=== PATIENT | male | born 1980 | race Caucasian/White ===

== ENCOUNTER 2019-08-11 00:38 | Day surgery (SDC) | payer OTHER, SELFPAY ==
[2019-07-28 14:04] VITALS: BMI 31.8
--- NOTE | 2019-08-10 16:59 | WPDANESEPP ---
Anes - Eval Pre Procedure Procedure: Operation Date: 08/11/19 07:30 Proposed Procedures p Bilateral Open Carpal Tunnel Release - Charlie Hurd MD Date/Time: 08/10/19 16:59 Pre Op Diagnosis: bilateral carpal tunnel syndrome Patient Data Age: 38 Gender: M Height: 6 ft Weight: 106.59 kg Allergies Allergy/AdvReac Type Severity Reaction Status Date / Time No Known Allergies Allergy Verified 07/28/19 14:04 Home Medications Medication Instructions Recorded Confirmed Type ibuprofen 200 mg PO BID 07/28/19 07/28/19 History Patient hx anesthesia problems: none Family hx anesthesia problems: none PMFSH Past Medical History Medical History (Updated 08/10/19 @ 17:01 by Sam Mondragon CRNA) Back pain Obesity Surgical History Surgical History (Updated 08/10/19 @ 17:01 by Sam Mondragon CRNA) H/O vasectomy Exam Day of Procedure 08/10/19 16:59
--- NOTE | 2019-08-10 21:50 | HP_ITS ---
DATE OF SERVICE: 08/11/2019 PREOPERATIVE DIAGNOSIS: Bilateral carpal tunnel syndrome. HISTORY: This gentleman is 38. He is a patient of Hector Hart. 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 His condition has been going on for 3 years. He has numbness that is frequent in the radial 3-1/2 digits. This wakes him at night. His symptoms were lessened as he was off work for a while. A nerve conduction test was done 06/14/19, by Dr. Huang indicating bilateral carpal tunnel syndrome. This is consistent with his symptoms and his exam. ALLERGIES: HE HAS NO KNOWN ALLERGIES TO MEDICATION. MEDICATIONS: He takes ibuprofen. PRIOR SURGERIES: Include knee surgery in 1997, tonsillectomy in 1991 and pilonidal cyst surgery in 2001. He says he sees no other specialists. He is a nonsmoker. REVIEW OF SYSTEMS: Otherwise negative. FAMILY HISTORY: Noncontributory. 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 PHYSICAL EXAMINATION: GENERAL: He is alert, cooperative and informative. He is 6 feet tall, weighs 235 pounds, in no distress. HEENT: Unremarkable. CHEST: Clear to auscultation. HEART: Regular rate and rhythm by palpation. ABDOMEN: soft, nontender. EXTREMITY exam reveals a few findings possibly due to the long duration of his symptoms, but include provocative pain in Tinel's at the right elbow and Tinel's at the left wrist and then Tinel's at the left elbow. He has some difficulty opposing the 1st and 5th digits. ASSESSMENT: Bilateral carpal tunnel syndrome. PLAN: Bilateral open carpal tunnel release under local anesthetic at his request. D I MT: Valeria
[2019-08-11] VITALS (7 sets, daily range): BP systolic 128–169; BP diastolic 50–79; PULSE 67–81; RESP 16; TEMP 36.6; O2SAT 97–99; BMI 31.2
--- NOTE | 2019-08-11 07:21 | WPDHPUPDATE1 ---
History and Physical Update Update Date/Time: 08/11/19 07:21 History and Physical has been reviewed, including an updated exam of the patient. There are NO changes in the patient's condition. Risks, benefits, and alternatives have been discussed and questions answered. Patient agrees to proceed with procedure.
[2019-08-11] MEDS: LIDO 1%/EPINEPHRINE 1:100,000 20 ML VIAL INFILTRATE (07:51)
--- NOTE | 2019-08-11 08:13 | PM.OP ---
Procedure Note - Brief Procedure Note - Brief Date of procedure: 08/11/19 Pre-op diagnosis: bilateral carpal tunnel syndrome Post-op diagnosis: same (Bilateral carpal tunnel syndrome) Procedure performed: B OCTR Anesthesia: local Surgeon: Charlie Hurd MD Estimated blood loss (mL): 6 Tourniquet time (min): 0 Drains: No Packing: No Pathology: none sent Complications: No immediate complications Condition: stable Disposition: same day
--- NOTE | 2019-08-11 08:20 | PM.PROC ---
Procedure Note - Detailed Date of procedure: 08/11/19 Pre-op diagnosis: bilateral carpal tunnel syndrome Bilateral carpal tunnel syndrome Post-op diagnosis: same Procedure performed: Bilateral open carpal tunnel release Description of procedure: The 2 sites planned for surgery were marked in the holding area. He was rolled to the operative room placed supine on the operating table. A time-out was held and confirmed. The 2 extremities were marked for the exact incisions and each was infiltrated with 1% lidocaine with epinephrine. The extremities were prepped and draped in the usual fashion. Neither side required the use of a tourniquet. Surgery was begun on the left side with an incision as marked. Blunt dissection through the subcutaneous tissue revealed the palmar fascia and the carpal ligament. These were incised with a 15. Blade opening the canal. The release was done distally and proximally to complete the open the canal and no unusual anatomy was noted. The skin was closed with interrupted 4-0 nylon suture. Attention was turned to the opposite side. The incision was made as marked. Dissection was carried bluntly through the subcutaneous tissue to the palmar fascia and carpal ligament. These were incised with a 15. Blade. Under 3 point retraction, the ligament was divided distally and proximally to completely release it.. Again no unusual anatomy was noted. The usual bandages with Xeroform gauze and Anup wrap were applied. The patient is discharged with a prescription for hydrocodone . Surgeon: Charlie Hurd MD
== END 2019-08-11 08:45 | disposition home or self-care (01) ==
PROVIDERS: PCP Family Medicine; Visit Provider Plastic Surgery
PROC: (CPT 64721; principal; 2019-08-11 07:30)
DX: G56.03 Carpal tunnel syndrome, bilateral upper limbs (principal); E66.9 Obesity, unspecified; Z68.31 Body mass index [BMI] 31.0-31.9, adult
CPT/HCPCS: 64721; A9270

== ENCOUNTER 2022-08-18 09:47 | Emergency (ER) | payer OTHER, SELFPAY ==
[2022-08-18 10:05] VITALS: BP 145/78; PULSE 69; RESP 16; TEMP 36.3; O2SAT 99
[2022-08-18 10:16] LABS: Basophils Absolute Auto 0.1 K/mm3 (0.0-0.1); Eosinophils Absolute Auto 0.1 K/mm3 (0-0.3); Eosinophils Percent Auto 1.2 % (0-4.4); Hematocrit 42.3 % (42.0-52.0); Hemoglobin 14.1 g/dL (14.0-18.0); Immature Granulocyte Absolute 0.01 K/mm3 (0.00-0.031); Immature Granulocyte Percent A 0.2 % (0-0.5); Lymphocytes Absolute Auto 1.82 K/mm3 (0.9-3.2); Lymphocytes Percent Auto 35.4 % (18.3-44.2); Mean Corpuscular HGB Conc 33.3 g/dl (32-36); Mean Corpuscular Hemoglobin 30.3 pg (26-34); Mean Platelet Volume 9.6 fl (7.4-10.4); Monocytes Absolute Auto 0.5 K/mm3 (0.1-0.6); Monocytes Percent Auto 10.3 % (2.6-8.5); Neutrophils Absolute Auto 2.7 K/mm3 (1.3-6.7); Neutrophils Percent Auto 51.9 % (45.5-73.1); Platelet Count Result 235 k/mm3 (150-375); Red Blood Count 4.65 M/mm3 (4.6-6.20); Red Cell Distribution Width 12.5 % (11.5-14.5); White Blood Count 5.1 K/mm3 (4.5-10.0)
[2022-08-18 10:27] VITALS: BP 133/76; O2SAT 99
[2022-08-18 10:27] LABS: Prothrombin Time 12.5 Seconds (11.1-14.7)
[2022-08-18 10:28] LABS: Partial Thromboplastin Time 27.7 SECONDS (22.3-36.8)
[2022-08-18 10:31] VITALS: BP 124/83; O2SAT 99
[2022-08-18 10:39] LABS: Alanine Aminotransferase 41 U/L (6-50); Albumin Level 4.2 g/dL (3.5-5.1); Alkaline Phosphatase 74 U/L (38-126); Anion Gap 9 mmol/L (8-16); Aspartate Amino Transferase 35 U/L (17-59); Bilirubin,Total 0.7 mg/dL (0.2-1.3); Blood Urea Nitrogen 16 mg/dL (9-20); Calcium 8.8 mg/dL (8.4-10.2); Carbon Dioxide 25 mmol/L (22-30); Chloride 105 mmol/L (98-107); Estimated CRCL calculation 126 ml/min; Estimated Glomerular Filt Rate > 60; Glucose 102 mg/dL (65-110); Sodium 139 mmol/L (137-145)
[2022-08-18 10:45] VITALS: O2SAT 100
[2022-08-18 10:46] VITALS: BP 139/83; O2SAT 100
--- NOTE | 2022-08-18 11:04 | ED.GIBLEED ---
HPI - GI Bleed General Chief complaint: GI Bleed Stated complaint: BLOOD IN STOOL X1WK Time Seen by Provider: 08/18/22 10:24 History of Present Illness HPI Narrative: 41-year-old male here for evaluation of blood in his stool over the past week. Patient has a history of hemorrhoids and states this happened in the past. He states this week the blood is increased from usual flare-ups and is now mixed in the stool. The blood is bright red. he denies any tarry stools, abdominal pain, rectal pain/itching, nausea, vomiting, blood in his vomit. He has never seen a GI doctor. Reports occasional alcohol use but no significant NSAID use. Related Data Home Medications Medication Instructions Recorded Confirmed ibuprofen 200 mg tablet 200 mg PO BID 07/28/19 07/28/19 Allergies Allergy/AdvReac Type Severity Reaction Status Date / Time No Known Allergies Allergy Verified 07/28/19 14:04 Review of Systems Review of Systems: Gen.: Denies fevers or chills Eyes: Denies eye pain or visual change ENT: Denies congestion Respiratory: Denies shortness of breath or cough CV: Denies chest pain or palpitations GI: Denies abdominal pain nausea, emesis or diarrhea reports blood in stool Musculoskeletal: Denies back pain or muscle pain Neuro: Denies numbness, tingling, weakness or focal weakness Skin: Denies rash Except as documented, all other systems reviewed and negative PMFSH Past Medical History Medical History Back pain Obesity Surgical History Surgical History H/O vasectomy Exam Narrative: APPEARANCE: Well appearing, no pain in distress, well-nourished. Head: Normocephalic and atraumatic. EYES: PERRLA/EOMI, conjunctivae clear NOSE: No nasal drainage EARS: External ear normal in appearance THROAT: Oropharynx is clear. Mucous membranes are moist. NECK: Supple. No adenopathy, no masses. RESPIRATORY: Airway patent, respirations nonlabored. Clear to auscultation bilaterally, no rales, rhonchi, wheezing. CARDIOVASCULAR: Regular rate and rhythm without murmurs, rubs, or gallops. ABDOMINAL: Normoactive bowel sounds. Soft, nontender, nondistended. No rebound tenderness or guarding. : No blood noted on rectal exam. MUSCULOSKELETAL: Extremities are warm and well-perfused. Moves all extremities well. No edema. NEURO: Normal speech. No focal neurologic deficits. SKIN: Skin is warm and dry. No rashes. PSYCHIATRIC: Normal affect/mood. Course Vital Signs Vital signs: Vital Signs Temperature 97.4 F L 08/18/22 10:05 Pulse Rate 69 08/18/22 10:05 Respiratory Rate 16 08/18/22 10:05 Blood Pressure 145/78 H 08/18/22 10:05 Pulse Oximetry 99 08/18/22 10:05 Oxygen Delivery Room Air 08/18/22 10:05 Temperature 97.4 F L 08/18/22 10:05 Pulse Rate 69 08/18/22 10:05 Respiratory Rate 16 08/18/22 10:05 Blood Pressure 139/83 08/18/22 10:46 Pulse Oximetry 100 08/18/22 10:46 Oxygen Delivery Room Air 08/18/22 10:05 Procedures Stool Hemoccult Stool hemoccult #1: Stool Hemoccult Date: 08/18/22 Stool Hemoccult Time: 11:08 Procedural Steps Taken: stool placed in appropriate test area, developer placed on stool and control areas and controls appropriately positive and negative Hemoccult result: negative MDM - GI Bleed MDM Narrative Medical decision making narrative: 41-year-old male here for evaluation of blood mixed in his stool over the past week, does have a history of hemorrhoids but states that this week episode is increased than usual not of blood. He is nontoxic in appearance and has normal vital signs; abdomen is soft and nontender. His rectal exam reveals no gross blood and his Hemoccult is negative. No visualized hemorrhoids. His hemoglobin and hematocrit are normal at 14.1 and 42.3. BUN is normal. Given longevity of symptoms, history of hem
== END 2022-08-18 12:26 | disposition home or self-care (01) ==
PROVIDERS: Emergency Medicine; Emergency Provider Physician Assistant; PCP Family Medicine
DX: K64.9 Unspecified hemorrhoids (principal); E66.9 Obesity, unspecified; Z68.34 Body mass index [BMI] 34.0-34.9, adult
CPT/HCPCS: 36415; 80053; 85025; 85610; 85730; 86850; 86900; 86901; 99283

== ENCOUNTER 2023-06-20 09:25 | Emergency (ER) | payer OTHER, SELFPAY ==
--- NOTE | 2023-06-20 09:26 | ED.EYEPROB ---
HPI - Eye Problem General Chief complaint: Eye Problems Stated complaint: Right Eye Irritation Time Seen by Provider: 06/20/23 09:25 Source: patient Mode of arrival: ambulatory Limitations: no limitations History of Present Illness HPI Narrative: Gio is a 42-year-old male patient presenting to the clinic today with complaints of right eye irritation x 3 days. He reports no fever or chills. Does report some eye itchiness. Yellow mucopurulent discharge. He denies any eye pain or visual changes Related Data Allergies Allergy/AdvReac Type Severity Reaction Status Date / Time No Known Allergies Allergy Verified 07/28/19 14:04 Review of Systems Review of Systems: Pertinent positives per HPI. Patient denies any fever, chills, rash, headache, visual changes, dizziness, cough, runny nose, sore throat, shortness of breath, chest pain, palpitations, nausea, vomiting, diarrhea, constipation, abdominal pain, or any urinary issues. PMFSH Past Medical History Medical History Back pain Obesity Surgical History Surgical History H/O vasectomy Comments At the time of my signature, I reviewed and agree with the nursing past medical, surgical, social, and family history. There is no relevant family history pertinent to the patient complaint. Exam Narrative: General: Well-developed, well nourished, in no apparent distress Head: Normocephalic, atraumatic Eyes: Pupils equally round and reactive to light bilaterally, EOM intact, left sclera and conjunctive clear, left lids normal, right sclera and conjunctiva injected with yellow mucopurulent discharge, right lids swelling Ears: TMs intact and clear, ear canals clear, no drainage, grossly hearing normal. Nose: Nares patent, no discharge, no inflammation, no sinus tenderness. Mouth: Oropharynx without lesions or masses, good dentition, MMM. Neck: Supple, trachea midline, no enlargement of anterior or posterior cervical nodes, no thyroid masses or goiter palpable. Cardio: Regular rate and rhythm, s1 and s2 normal, no murmur appreciated. Resp: Clear to auscultation bilaterally anteriorly and posteriorly, no rhonchi, rales, wheezing or rubs Course Course Emergency Course: Portions of this record may have been created with voice recognition software. Level of Care: Express Care Visit Vital Signs Vital signs: Vital signs reviewed MDM - Eye Problem MDM Narrative Medical decision making narrative: At the time of visit patient is resting comfortably on the exam table. Patient appears to be nontoxic. I suspect patient has bacterial conjunctivitis. Prescription for tobramycin eyedrops was sent to pharmacy. Supportive measures were discussed with the patient and they voiced understanding discharge instructions and agrees to treatment plan. Return precautions reviewed Differential Diagnosis Differential diagnosis: Likely corneal abrasion, conjunctivitis, acute iritis, hyphema, periorbital cellulitis, subconjunctival hemorrhage, glaucoma, corneal ulcer and ruptured globe Discharge Plan Discharge Clinical Impression: Conjunctivitis Qualifiers: Conjunctivitis type: acute Acute conjunctivitis type: bacterial Laterality: right Qualified Code(s): H10.31 - Unspecified acute conjunctivitis, right eye Patient Disposition: Home, Self-Care Condition: Stable Instructions: Antibiotic Form, Conjunctivitis (ED) Additional Instructions: Conjunctivitis is considered contagious for 24 hours while on the antibiotic. Practice good hand washing techniques Avoid touching eyes Instill eyedrops as prescribed-tobramycin May use warm moist washcloth to help remove eye discharge If eyes are matted shut-do not pry eyes open-use a warm moist cloth to loosen matting and wipe matter away from eye May take Tylenol/Motrin as needed for pain or fever May take Be
[2023-06-20 09:32] VITALS: BP 138/78; PULSE 77; RESP 16; TEMP 36.1; O2SAT 98
== END 2023-06-20 09:40 | disposition home or self-care (01) ==
LOC: EXPTROY 09:27
PROVIDERS: Emergency Provider Nurse Practitioner Family; PCP Family Medicine
DX: H10.31 Unspecified acute conjunctivitis, right eye (principal); E66.9 Obesity, unspecified; Z68.32 Body mass index [BMI] 32.0-32.9, adult; Z98.52 Vasectomy status
CPT/HCPCS: 99213; G0463